=== PATIENT | male | born 1965 | race Caucasian/White ===

== ENCOUNTER 2016-04-14 05:47 | Day surgery (SDC) | payer OTHER ==
[~2016-04-14] VITALS: Ht 160 cm; Wt 80.9 kg
[2016-04-14 07:02] VITALS: Ht 160 cm; Wt 80.9 kg
[2016-04-14] MEDS ORDERED: METF500T4 PO (07:10)
[2016-04-14] MEDS ORDERED: PANT40TA4 PO (07:10)
[2016-04-14] MEDS ORDERED: BENA10TA48 PO (07:10)
[2016-04-14] MEDS ORDERED: ATOR40TA68 PO (07:11)
[2016-04-14 07:32] VITALS: BP 144/84; PULSE 73; RESP 19
[2016-04-14] MEDS ORDERED: FENTAnyl 50 MCG/ML VIAL ONE (08:18)
[2016-04-14] MEDS ORDERED: MIDAZOLAM 1 MG/ML 2 ML INJ ONE ×2 (08:19)
[2016-04-14 08:36] VITALS: BP 114/71; RESP 20
--- NOTE | 2016-04-14 22:56 | GILP ---
DATE OF PROCEDURE: NAME OF PROCEDURES: 1. Esophagogastroduodenoscopy and biopsy. 2. Colonoscopy and biopsy. SURGEON: Rene Dai MD PREOPERATIVE DIAGNOSES: 1. Abdominal pain. 2. Screening colonoscopy. POSTOPERATIVE DIAGNOSES: 1. Gastritis. 2. Gastric polyp on the antrum, and biopsies were taken for histopathology. 3. Colonoscopy all the way to the cecum. 4. Two small sigmoid colon polyps were removed using the biopsy forceps. 5. Internal hemorrhoids. INDICATION FOR THE PROCEDURE: Mr. Sander Flores is a 50-year-old male patient who had upper abdomin al pain not responding to therapy. The patient also needed screening colonoscopy. The procedures and possible complications are well explained to the patient. He understood and cons ented to the procedures. DESCRIPTION OF PROCEDURE: Under the influence of fentanyl and Versed, the gastroscope was carefully introduced into the esophagus. Under direct vision, it was advanced to stomach and through the pyl orus into the duodenal bulb and descending duodenum. FINDINGS: ESOPHAGUS: Mucosa was normal. STOMACH: The patient had gastritis. He also had a gastric polyp on the antrum, and biopsies were t aken for histopathology. DUODENUM: Normal. The colonoscope was carefully introduced in the rectum. Under direct vision, it was advanced all th e way to the cecum. FINDINGS: The patient had 2 small sigmoid colon polyps, and they were removed using the biopsy forc eps. He was noted to have internal hemorrhoids. He tolerated the procedures very well. There was no complication from the procedures. At the end o f procedures, he was awake with stable vital signs, and he was discharged home to care of his family . IMPRESSION: Please see postoperative diagnoses. PLAN: 1. Await histopathology reports. 2. Continue pantoprazole. 3. Next screening colonoscopy in 10 years. Dictated By: RENE JIMENEZ/GEREMIAS Conf#: [id number] DID#: [id number]
== END 2016-04-14 10:13 | disposition home or self-care (01) ==
LOC: GIL 05:47
PROVIDERS: ATTEND Internal Medicine Gastroenterology
DX: Z12.11 Encounter for screening for malignant neoplasm of colon (principal); D12.5 Benign neoplasm of sigmoid colon; K29.70 Gastritis, unspecified, without bleeding; K64.8 Other hemorrhoids; I10 Essential (primary) hypertension; E11.9 Type 2 diabetes mellitus without complications
CPT/HCPCS: 43239; 45380; 82962; 88305; 88312; J2250; J3010; Z7610

== ENCOUNTER 2016-04-18 14:28 | Emergency (ER) | payer OTHER ==
[~2016-04-18] VITALS: Ht 165.1 cm; Wt 81.5 kg
[~2016-04-18 14:28] MED LIST: ATOR40TA68 PO; BENA10TA48 PO; METF500T4 PO; PANT40TA4 PO
[2016-04-18 14:36] VITALS: Ht 165.1 cm; Wt 81.5 kg
[2016-04-18] MEDS ORDERED: HYDR30CR75 PR (15:49)
[2016-04-18] MEDS ORDERED: HYDR-906 PO (15:49)
[2016-04-18] MEDS ORDERED: IBUP-1542 PO (15:49)
--- NOTE | 2016-04-18 15:56 | ERD ---
ER Documentation Chief Complaint Date/Time DATE: 04/18/16 TIME: 15:52 Chief Complaint RECTAL PAIN STARTING YESTERDAY. DENIES RECTAL BLEED. HPI Patient is a 50-year-old male with past medical history of diabetes who presents to the emergency department with rectal pain 1 day. Patient states that his pain started yesterday. Patient states that the pain is constant. Patient states current pain level is a 9 out of 10. Patient denies any rectal discharge or bleeding. Patient reports hard stools with straining occasionally. Last bowel movement was today, normal per patient. Patient denies any fever, chills, nausea, vomiting, abdominal pain or loss of consciousness. Patient states that he recently underwent a colonoscopy and endoscopy on last Thursday. Biopsy results pending. Patient states he was told he had gastritis. ROS All systems reviewed and are negative except as per history of present illness. Medications Home Meds Active Scripts Hydrocodone/Acetaminophen (Bellwood 5-325 Tablet) 1 Each Tablet, 1 TAB PO Q6H Y for PAIN, #7 TAB Prov:HIMANSHU BEACH PA-C 04/18/16 Ibuprofen* (Motrin*) 600 Mg Tab, 600 MG PO Q6, #30 TAB Prov:HIMANSHU BEACH PA-C 04/18/16 Hydrocortisone Acetate* (Anusol-HC*) 30 Gm Cream.gm., 1 APPLIC WA BID, #1 TUB Prov:HIMANSHU BEACH PA-C 04/18/16 Reported Medications Atorvastatin* (Atorvastatin*) 40 Mg Tablet, 40 MG PO QHS, #30 TAB 04/14/16 Metformin* (Glucophage*) 500 Mg Tab, 500 MG PO WITH BREAKFAST, #30 TAB 04/14/16 Benazepril Hcl* (Benazepril Hcl*) 10 Mg Tablet, 10 MG PO DAILY, #30 TAB 04/14/16 Pantoprazole* (Pantoprazole*) 40 Mg Tablet.dr, 40 MG PO DAILY, TAB 04/14/16 Allergies Allergies: Coded Allergies: No Known Allergy (Unverified , 04/14/16) PMhx/Soc Medical and Surgical Hx: pt denies Medical Hx, pt denies Surgical Hx History of Surgery: No Anesthesia Reaction: No Hx Neurological Disorder: No Hx Respiratory Disorders: No Hx Cardiac Disorders: No Hx Psychiatric Problems: No Hx Miscellaneous Medical Probl: Yes (DM) Hx Alcohol Use: No Hx Substance Use: No Hx Tobacco Use: No Smoking Status: Never smoker FmHx Family History: No diabetes Physical Exam Vitals Vital Signs Date Time Temp Pulse Resp B/P Pulse Ox O2 Delivery O2 Flow Rate FiO2 04/18/16 17:31 98.8 81 20 144/85 98 Room Air 04/18/16 14:36 98.2 68 16 158/87 98 Physical Exam GENERAL: Well-developed, well-nourished male. Appears in no acute distress. HEAD: Normocephalic, atraumatic. EYES: Pupils are equally reactive bilaterally. EOMs grossly intact. No conjunctival erythema. ENT: Moist mucous membranes. No uvula deviation. No kissing tonsils. NECK: Supple. No meningismus. Normal range of motion of the neck. LUNG: Clear to auscultation bilaterally. No rhonchi, wheezing, rales or coarse breath sounds. HEART: Regular rate and rhythm. No murmurs, rubs or gallops. ABDOMEN: No scars, ecchymosis or rashes noted. Soft, nontender, and nondistended. Positive bowel sounds in all four quadrants. No rebound tenderness , no guarding. (-) McBurney's point tenderness. No CVA tenderness. RECTAL: Normal anus, + External hemorrhoids. No active bleeding or discharge. Normal anal sphincter tone. 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 EXTREMITIES: Equal pulses bilaterally. No peripheral clubbing, cyanosis or edema. No unilateral leg swelling. NEUROLOGIC: Alert and oriented. Moving all four extremities without any difficulty. Normal speech. Steady gait. SKIN: Normal color. Warm and dry. No rashes or lesions. Procedures/MDM MEDICAL DECISION MAKING: She is a 50-year-old male who presents with rectal pain 1 day. Patient denied any rectal bleeding or rectal discharge. Patient denies any fever or chills. Vital signs were reviewed. Patient is afebrile. Patient was not hypoxic. Patient was hemodynamically stable. Rectal examination showed + external hemorrhoid. At this time, the patient's presentation is most consistent with external hemorrhoids. Unable to rule out any internal hemorrhoids. Low suspicion for cristina-rectal abscess, anal fissure, anal fistula, rectal prolapse, rectal foreign body, pilonidal cyst. PRESCRIPTION: Anusol, Bellwood, Ibuprofen DISCHARGE: At this time, patient is stable for discharge and outpatient management. I have instructed the patient to follow-up with his/her primary care physician in 1-2 days. I have discussed with the patient the possibility of needing to see a GI specialist for further workup and treatment if symptoms persist. Patient should follow up with GI doctor for his EGD and colonoscopy results. I have instructed the patient to promptly return to the ER for any new or worsening symptoms including increased pain, fever, nausea, vomiting, weakness or LOC. The patient and/or family expressed understanding of and agreement with this plan. All questions were answered. Home care instructions were provided. Departure Diagnosis: Primary Impression: Hemorrhoid Hemorrhoid type: unspecified Qualified Code: K64.9 - Hemorrhoids, unspecified hemorrhoid type Condition: Stable Patient Instructions: Hemorrhoids Referrals: SULEIMAN MORRIS MD, NAGARAJ M MD CHITAYAT, RON DESAI,FIDEL CALDERON MD, MD, PIYUSH K MD KASHER, JOHN MD [facility] YOU HAVE RECEIVED A MEDICAL SCREENING EXAM AND THE RESULTS INDICATE THAT YOU DO NOT HAVE A CONDITION THAT REQUIRES URGENT TREATMENT IN THE EMERGENCY DEPARTMENT. FURTHER EVALUATION AND TREATMENT OF YOUR CONDITION CAN WAIT UNTIL YOU ARE SEEN IN YOUR DOCTORS OFFICE WITHIN THE NEXT 1-2 DAYS. IT IS YOUR RESPONSIBILITY TO MAKE AN APPOINTMENT FOR FOLOW-UP CARE. IF YOU HAVE A PRIMARY DOCTOR --you should call your primary doctor and schedule an appointment IF YOU DO NOT HAVE A PRIMARY DOCTOR YOU CAN CALL OUR PHYSICIAN REFERRAL HOTLINE AT IF YOU CAN NOT AFFORD TO SEE A PHYSICIAN YOU CAN CHOSE FROM THE FOLLOWING [facility] [address] [facility]. [facility] [address] [facility] [facility] [address] [facility] [address] [facility] [address] [facility]. [facility]. [address] [facility] YOU HAVE RECEIVED A MEDICAL SCREENING EXAM AND THE RESULTS INDICATE THAT YOU DO NOT HAVE A CONDITION THAT REQUIRES URGENT TREATMENT IN THE EMERGENCY DEPARTMENT. FURTHER EVALUATION AND TREATMENT OF YOUR CONDITION CAN WAIT UNTIL YOU ARE SEEN IN YOUR DOCTORS OFFICE WITHIN THE NEXT 1-2 DAYS. IT IS YOUR RESPONSIBILITY TO MAKE AN APPOINTMENT FOR FOLOW-UP CARE. IF YOU HAVE A PRIMARY DOCTOR --you should call your primary doctor and schedule and appointment IF YOU DO NOT HAVE A PRIMARY DOCTOR YOU CAN CALL OUR PHYSICIAN REFERRAL HOTLINE AT . IF YOU CAN NOT AFFORD TO SEE A PHYSICIAN YOU CAN CHOSE FROM THE FOLLOWING [facility] INSTITUTIONS: [facility] [address] [place] [address] [facility] [address] [place] [address] [facility] + [facility] [address] [place] [address] Additional Instructions: Patient will need to follow-up with a GI specialist for further management of his hemorrhoids. See referral list. Call your primary care doctor TOMORROW for an appointment during the next 1-2 days.See the doctor sooner or return here if your condition worsens before your appointment time. HIMANSHU BEACH PA-C Apr 18, 2016 15:56
[2016-04-18 17:31] VITALS: BP 144/85; PULSE 81; RESP 20; TEMP 98.8
== END 2016-04-18 17:32 | disposition home or self-care (01) ==
LOC: FTE 14:28
DX: K64.4 Residual hemorrhoidal skin tags (principal); E11.9 Type 2 diabetes mellitus without complications; Z79.84 Long term (current) use of oral hypoglycemic drugs
CPT/HCPCS: 99284